=== PATIENT | male | born 2000 | race Two or more races ===

== ENCOUNTER 2020-06-25 16:04 | Emergency (ER) | payer OTHER ==
[2020-06-25 16:12] VITALS: BP 142/77
[2020-06-25] MEDS ORDERED: METHYLPREDNISOLONE INJ 125 MG/2 ML SDV IM ONE (16:27)
--- NOTE | 2020-06-25 16:28 | ER Document Report ---
HPI - HPI Patient complains to provider of: Rash Time Seen by Provider: 06/25/20 16:21 Pain Level: Denies Context: 19-year-old male with no previous medical problems presents to the emergency room complaining of worsening hives that started 5 days ago. Denies any changes in soaps, laundry detergent, creams or lotions. No new meds, no new foods, no recent antibiotics. [place] Motrin. Minimal relief with the Claritin. Denies any shortness of breath, no difficulty breathing. No history of hives. No recent travel. No one else at home with the rash. [place] and states they told him there was nothing they could do. Associated Symptoms: None Exacerbated by: Denies Relieved by: Denies Similar symptoms previously: No Recently seen / treated by doctor: No - ROS Systems Reviewed and Negative: Yes All other systems reviewed and negative - EENT EENT: DENIES: Sore Throat, Congestion - NEURO Neurology: DENIES: Weakness - RESPIRATORY Respiratory: DENIES: Trouble Breathing, Coughing - MUSCULOSKELETAL Musculoskeletal: DENIES: Extremity pain, Back Pain - DERM Skin Color: Erythema Skin Problems: Rash Past Medical History - General Information source: Patient - Social History Smoking Status: Current Every Day Smoker Frequency of alcohol use: Occasional Drug Abuse: None Family History: Reviewed & Not Pertinent Vertical Provider Document - CONSTITUTIONAL Agree With Documented VS: Yes Exam Limitations: No Limitations General Appearance: Mild Distress - INFECTION CONTROL TRAVEL OUTSIDE OF THE [place] IN LAST 30 DAYS: No - HEENT HEENT: Atraumatic, Normocephalic - NECK Neck: Normal Inspection, Supple, Thyroid Normal - RESPIRATORY Respiratory: Breath Sounds Normal, No Respiratory Distress, Chest Non-Tender - CARDIOVASCULAR Cardiovascular: Regular Rate, Regular Rhythm, No Murmur - BACK Back: Normal Inspection. negative: CVA Tenderness-Right, CVA Tenderness-Left - MUSCULOSKELETAL/EXTREMETIES Musculoskeletal/Extremeties: FROM, Non-Tender - NEURO Level of Consciousness: Awake, Alert, Appropriate Motor/Sensory: No Motor Deficit, No Sensory Deficit - DERM Integumentary: Warm, Dry, Rash - Patient with erythematous rash with mild urticaria noted to his neck, chest, back, bilateral upper extremities. Is not warm or tender to palpation. Nonblanching. Course - Re-evaluation Re-evalutation: 06/25/20 16:56 Patient is resting comfortably decreased erythema. Patient was counseled to take prednisone as prescribed. Continue with Claritin, Zyrtec, or Benadryl as needed for itching. Outpatient follow-up with a primary care physician if not improving in 2 to 3 days. On-call physician was provided. Patient was given strict return to the emergency room guidelines. Return for any new or worsening symptoms. All questions were answered. Patient verbalized understanding and agrees with plan of care. - Vital Signs Vital signs: Temp Pulse Resp BP Pulse Ox 98.5 F 99 18 142/77 H 97 06/25/20 16:10 06/25/20 16:10 06/25/20 16:10 06/25/20 16:10 06/25/20 16:10 Discharge - Discharge Clinical Impression: Rash and nonspecific skin eruption Condition: Stable Disposition: HOME, SELF-CARE Instructions: Contact Dermatitis ([facility]) Additional Instructions: Take Claritin, Zyrtec, or Benadryl as needed for itching. Prednisone as prescribed. Outpatient follow-up with a primary care physician if not improving in 2 to 3 days. Return to the emergency room for any new or worsening symptoms. Prescriptions: Prednisone [Deltasone 20 mg Tablet] See Protocol PO DAILY 9 Days #18 tablet Forms: Return to Work Referrals: SUJATA KOHLI DO [NO LOCAL MD] - Follow up as needed
== END 2020-06-25 17:02 | disposition home or self-care (01) ==
LOC: ER 16:04
DX: L50.9 Urticaria, unspecified (principal); F17.200 Nicotine dependence, unspecified, uncomplicated
CPT/HCPCS: 99284; 96372; J2930